=== PATIENT | male | born 1995 | race Caucasian/White ===

== ENCOUNTER 2019-11-02 23:56 | Emergency (ER) | payer OTHER ==
--- NOTE | 2019-11-03 01:23 | PDOC ---
Medical Decision Making - Medical Decision Making 11/03/19 01:23 Patient seen by the advanced practice provider under my direct supervision. Ancillary testing reviewed as necessary. I agree with plan as outlined by the advanced practice provider. Discharge - Discharge Information Problems reviewed: Yes Clinical Impression/Diagnosis: Contact dermatitis and eczema Condition: Fair Disposition: HOME - Additional Discharge Information Prescriptions: Hydrocortisone 1% Ointment [Hytone 1% Ointment -] 1 applic TP BID #1 tube - Follow up/Referral - Patient Discharge Instructions Patient Printed Discharge Instructions: Contact Dermatitis Additional Instructions: apply hydrocortisone as prescribed. continue benadryl every 6 hours as needed for pain take claritin once daily. - Post Discharge Activity Work/Back to School Note: Back to Work
[2019-11-03 01:24] VITALS: BP 131/82; PULSE 65; TEMP 98.3; BMI 22.7
--- NOTE | 2019-11-03 02:11 | PDOC ---
History of Present Illness - General Chief Complaint: Allergic Reaction Stated Complaint: ALERGIC REACTION Time Seen by Provider: 11/03/19 01:16 History Source: Patient - History of Present Illness Initial Comments: 11/03/19 02:06 24-year-old male reports that he took his shower with girlfriends shampoo last night. Reports a rash and itchiness to neck body and arms. Patient took Benadryl 1 dose and Claritin prior to arrival. Patient reports slight improvement in symptoms. Denies respiratory symptoms, throat pain, difficulty breathing. Past medical history of asthma and eczema Past History - Past Medical History Allergies/Adverse Reactions: Allergies Allergy/AdvReac Type Severity Reaction Status Date / Time dog dander Allergy Verified 11/03/19 01:25 peanut Allergy Verified 11/03/19 01:25 Home Medications: Ambulatory Orders Clindamycin [Cleocin -] 300 mg PO Q6HPO #20 capsule 11/26/15 Mupirocin Ointment [Bactroban 2% Ointment -] 1 applic TP TID #30 g 11/26/15 Permethrin 5% Topical Cream [Elimite -] 1 applic TP ONCE #60 g 11/26/15 Hydrocortisone 1% Ointment [Hytone 1% Ointment -] 1 applic TP BID #1 tube Asthma: Yes - Psycho Social/Smoking Cessation Hx Smoking History: Never smoked Have you smoked in the past 12 months: No Hx Alcohol Use: No Drug/Substance Use Hx: No Substance Use Type: None Review of Systems - Review of Systems Able to Perform ROS?: Yes Is the patient limited Swedish proficient: No Integumentary: Yes: Pruritus, Rash *Physical Exam - Vital Signs Last Vital Signs Temp Pulse Resp BP Pulse Ox 98.3 F 65 19 131/82 100 11/03/19 01:00 11/03/19 01:00 11/03/19 01:00 11/03/19 01:00 11/03/19 01:00 - Physical Exam General Appearance: Yes: Appropriately Dressed Extremity: positive: Other (dermatitisto neck, truck antecubital area) Integumentary: positive: Normal Color, Dry, Warm Neurologic: positive: Fully Oriented, Alert, Normal Mood/Affect ED Progress Note - Progress Note Progress Note: Contact dermatitis P: hydrocortisone Discharge - Discharge Information Problems reviewed: Yes Clinical Impression/Diagnosis: Contact dermatitis and eczema Condition: Fair Disposition: HOME - Additional Discharge Information Prescriptions: Hydrocortisone 1% Ointment [Hytone 1% Ointment -] 1 applic TP BID #1 tube - Follow up/Referral - Patient Discharge Instructions Patient Printed Discharge Instructions: Contact Dermatitis Additional Instructions: apply hydrocortisone as prescribed. continue benadryl every 6 hours as needed for pain take claritin once daily. - Post Discharge Activity Work/Back to School Note: Back to Work
== END 2019-11-03 02:30 | disposition home or self-care (01) ==
LOC: JER 23:56
DX: T49.8X1A Poisoning by other topical agents, accidental (unintentional), initial encounter (principal); L23.2 Allergic contact dermatitis due to cosmetics; Y92.031 Bathroom in apartment as the place of occurrence of the external cause; Z91.048 Other nonmedicinal substance allergy status
CPT/HCPCS: 99281-25